=== PATIENT | female | born 1960 | race Caucasian/White ===

== ENCOUNTER 2022-11-17 14:34 | Outpatient (CLI) | payer BC | END 2022-11-17 14:35 | disposition home or self-care (01) | LOC: BICMAMMO 14:34 | PROVIDERS: ATTEND Family Medicine | DX: N63.0 Unspecified lump in unspecified breast (principal); R92.1 Mammographic calcification found on diagnostic imaging of breast; N64.89 Other specified disorders of breast; R93.89 Abnormal findings on diagnostic imaging of other specified body structures | CPT/HCPCS: 77066; G0279 ==

== ENCOUNTER → 2023-03-22 | Day surgery (SDC) | payer BC | END | disposition home or self-care (01) | LOC: BICULT 12:33 | PROVIDERS: ATTEND Family Medicine | PROC: 0H9U3ZX Drainage of Left Breast, Percutaneous Approach, Diagnostic (ICD-10-PCS; principal; 2023-03-22) | DX: N63.21 Unspecified lump in the left breast, upper outer quadrant (principal) | CPT/HCPCS: 19083; 88305 ==